=== PATIENT | female | born 1950 | race Caucasian/White ===

== ENCOUNTER 2016-07-19 05:28 | Day surgery (SDC) | payer MEDICARE, SELFPAY ==
[2016-07-09 11:11] LABS: HEMATOCRIT 38.8 % (36.0-48.0)
[2016-07-09 11:33] LABS: BUN (BLOOD UREA NITROGEN) 11 MG/DL (6-23); CALCIUM, SERUM 8.9 MG/DL (8.5-10.4); CHLORIDE, SERUM 100 MMOL/L (96-112); CO2 (CARBON DIOXIDE) 33 MMOL/L (24-34); CREATININE 0.81 MG/DL (0.55-1.02); GFR AFRICAN AMERICAN 90 ML/MIN (>=60); GFR NON AFRICAN AMERICAN 77 ML/MIN (>=60); GLUCOSE, SERUM 73 MG/DL (60-99); POTASSIUM, SERUM 3.7 MMOL/L (3.5-5.3); SODIUM, SERUM 140 MMOL/L (135-148)
--- NOTE | ~2016-07-19 | OP ---
Record Of [address] [place]. [address] NAME: ROGELIO BRUNER : 54 STATUS : [facility] PAT#: [id number] AGE: 65 ADM/REG DATE : 07/19/16 MR#: [id number] REPORT SERV DATE: 07/20/16 DICTATED BY: STEPHAN JEWELL DATE: 07/19/16 REPORT STATUS : Draft TRANSCRIBED BY: MODL DATE: 07/19/16 DATE OF PROCEDURE: 07/19/2016 OPERATIVE SURGEON: Stephan Jewell M.D. OPERATIVE DIRECTOR BUSINESS: MUKUL Anton COMPLICATIONS: None. ESTIMATED BLOOD LOSS: Minimal. DISPOSITION: Stable to recovery room. ANESTHESIA: General with interscalene block augmentation for postoperative pain control. PREOPERATIVE DIAGNOSES: 1. Left shoulder pain. 2. Full-thickness supraspinatus rotator cuff tear. 3. Degenerative labrum. 4. Subacromial impingement. POSTOPERATIVE DIAGNOSES: 1. Left shoulder pain. 2. Medium full-thickness supraspinatus rotator cuff tear with interlaminar split and tissue maceration. 3. Degenerative labral tear. 4. Subacromial impingement. 5. Acromioclavicular joint osteoarthritis with impingement. PROCEDURES PERFORMED: 1. Left shoulder examination under anesthesia. 2. Left shoulder arthroscopy. 3. Medium full-thickness supraspinatus rotator cuff repair using a marginal convergence and single row repair technique. 4. Extensive debridement of degenerative labral tear. 5. Subacromial decompression. 6. Distal clavicular coplaning. PROCEDURE: The diagnoses listed above as well as the recommended surgical procedure and risks and benefits thereof were discussed in full detail with Rogelio Bruner and family on 07/19/2016. The patient and family asked appropriate questions which were answered to their satisfaction. Informed consent was signed, witnessed, and placed in the chart. The correct upper extremity was marked for confirmation and an interscalene block was placed by the anesthesia team with good success. The patient was then wheeled to the [facility] where general anesthesia was administered. The patient was placed in the lateral Record Of [address] [place]. [address] NAME: ROGELIO BRUNER : 54 STATUS : [facility] PAT#: [id number] AGE: 65 ADM/REG DATE : 07/19/16 MR#: [id number] REPORT SERV DATE: 07/20/16 DICTATED BY: STEPHAN JEWELL DATE: 07/19/16 REPORT STATUS : Draft TRANSCRIBED BY: AARTI DATE: 07/19/16 decubitus position with an axillary roll in place and all nonoperative extremities well- padded and secured for the duration of the case. The correct upper extremity was examined under anesthesia and then placed in five pounds of longitudinal traction and prepped and draped in typical orthopedic sterile fashion. A surgical pause was performed confirming both the correct patient as well as the proper surgical site and procedure. All present were in agreement. The patient received the appropriate dose of antibiotics for perioperative antibiosis. All standard anatomical landmarks as well as arthroscopic portal sites were demarcated using a sterile marking pen. Next, 15 cc 0.5% Marcaine with Epinephrine was injected into the standard posterior, lateral, and anterior portal sites. A #11 blade was used to establish the posterior portal through which an arthroscopic cannula and blunt obturator were inserted atraumatically into the glenohumeral joint. A full diagnostic arthroscopy was performed. The subscapularis, middle, and inferior glenohumeral ligaments as well as the axillary pouch were within normal limits. The biceps tendon showed evidence for mild tenosynovitis as it traversed into the bicipital groove, but no significant tearing or subluxation. The articular surface of the humeral head and the glenoid were in good condition. Using an inside-out approach an anterior portal was established and a dammed cannula was placed. The labrum showed evidence of degenerative tearing but no acute instability. An arthroscopic shaver was used to perform an extensive debridement of all damaged labrum bringing it back down to a stable rim flush with the articular surface of the glenoid. The full thickness rotator cuff tear was evaluated and debrided of all damaged tissue in preparation for rotator cuff repair from above. Next, the arthroscope was removed from the intra-articular space and inserted into the subacromial space. The full-thickness supraspinatus rotator cuff tear was confirmed. There were multiple interlaminar splits and tissue maceration of the leading edge. There was a large void centrally and a full thickness defect. This was a medium size tear, but with multiple components to the tear as well as the maceration of the tissue, the quality has been compromised. The greater tuberosity was prepared for optimal biologic healing and anchor insertion. Suture tape was used to close the apex of the tear and to repair layers of the tear using a marginal convergence technique. Once this was conducted, sutures were passed medial to our marginal convergence sutures to capture the leading edge of the rotator cuff tendon, which had been lateralized. The sutures were then secured to the greater tuberosity using two 4.75 SwiveLock anchors and completing a single row of rotator cuff repair with marginal convergence closure. The repair was tested and found to be very secure without any instability whatsoever. Full coverage of the humeral head and greater tuberosity footprint was obtained. Next, all soft tissue was removed from the undersurface of the acromion demonstrating downward reflection at the anterolateral border of the acromion with obvious mechanical subacromial impingement and narrowing of the subacromial space. An arthroscopic bur was Record Of Operation [address] [address] NAME: ROGELIO BRUNER : 54 STATUS : [facility]#: [id number] AGE: 65 ADM/REG DATE : 07/19/16 MR#: [id number] REPORT SERV DATE: 07/20/16 DICTATED BY: STEPHAN JEWELL DATE: 07/19/16 REPORT STATUS : Draft TRANSCRIBED BY: AARTI DATE: 07/19/16 used to perform a full subacromial decompression without difficulty. This opened up the subacromial space nicely. The acromioclavicular joint was found to have mild arthrosis and downward reflection of the distal clavicle. A distal clavicular coplaning was conducted as there was evidence for downward impingement. At this juncture all arthroscopic instruments, excess fluid, and debris were removed from the subacromial space. The portals were closed with 3-0 Monocryl in the subcuticular layers and Steri-Strips on the skin. A sterile dressing was secured with Medipore tape. The patient was placed in an UltraSling for temporary immobilization. The patient was then awakened from anesthesia without difficulty and transferred to the Post Anesthesia Care Unit in stable condition where the postoperative exam was within normal limits understanding that the interscalene block was still in effect. A lengthy discussion was held with the patient's family detailing all operative findings as well as procedures performed with all questions answered to their satisfaction. I certify that the identification of the principal and secondary diagnoses and the procedures performed are accurate and complete to the best of my knowledge. CCS/MODL Stephan Jewell M.D. / [id number] CC: Amalia Reyez KRISTIN
[~2016-07-19 05:28] MED LIST: ACET500CAP PO; B12100T PO; BORON PO; CALTRAT600 PO; COZ50 PO; DIAM250B PO; GARLIC PO; HYDROCHLOROT25 MG PO; IBU400 PO; LATUDA40 MG PO; LEVOTHYROXIN50 MCG PO; LIPITOR20 PO; MULTI-VIT HP OR; MULTIPLE VIT PO; PRILO PO; PROZ10 PO; PROZAC PO; SENTAB PO; VALERIAN ROOT PO; VITAMIN B100 COMPLEX PO; [UNRECOGNIZED DRUG - OTHER] PO
== END 2016-07-19 14:21 | disposition home or self-care (01) ==
LOC: SDC 05:28
PROVIDERS: Specialist
PROC: 0MM24ZZ Reattachment of Left Shoulder Bursa and Ligament, Percutaneous Endoscopic Approach (ICD-10-PCS; 2016-07-19)
PROC: 0LQ24ZZ Repair Left Shoulder Tendon, Percutaneous Endoscopic Approach (ICD-10-PCS; principal; 2016-07-19 06:45)
PROC: 0RNK4ZZ Release Left Shoulder Joint, Percutaneous Endoscopic Approach (ICD-10-PCS; 2016-07-19 06:45)
DX: M75.122 Complete rotator cuff tear or rupture of left shoulder, not specified as traumatic (principal); M75.42 Impingement syndrome of left shoulder; M19.012 Primary osteoarthritis, left shoulder; I10 Essential (primary) hypertension; E16.2 Hypoglycemia, unspecified; Z88.1 Allergy status to other antibiotic agents; Z88.8 Allergy status to other drugs, medicaments and biological substances
CPT/HCPCS: 80048; 82962; 85014; 85018; 88304; 93005; C1713; J0330; J0360; J0690; J2250; J2405; J2710; J2795; J3010